=== PATIENT | female | born 1970 | race African-American/Black ===

== ENCOUNTER 2023-08-24 20:12 | Emergency (ER) | payer OTHER ==
[~2023-08-24] VITALS: Ht 162.6 cm; Wt 118.2 kg
[2023-08-24 20:40] VITALS: BP 145/100; PULSE 96; RESP 18; O2SAT 98
[2023-08-24 22:07] LABS: COVID19 ANTIGEN SOFIA FIA NEGATIVE (NEGATIVE); Rapid Influenza A Negative (Negative); Rapid Influenza B Negative (Negative)
[2023-08-24] MEDS ORDERED: AMOX875T4 PO (23:52)
[2023-08-24] MEDS ORDERED: PRED20TA2 PO (23:52)
[2023-08-24] MEDS ORDERED: ACET500T58 PO (23:52)
[2023-08-24] MEDS ORDERED: ZOFR4T PO (23:55)
[2023-08-24] MEDS: ONDANSETRON ODT 4 MG TAB PO ONE (23:57)
[2023-08-24] MEDS: methylPREDNISolone SOD SUCC 125 MG/2 ML VL IM ONE (23:58)
[2023-08-24] MEDS: cefTRIAXone SOD 1,000 MG VL IM ONE (23:59)
== END 2023-08-25 00:12 | disposition home or self-care (01) ==
LOC: ER 20:12
DX: J06.9 Acute upper respiratory infection, unspecified (principal); Z20.822 Contact with and (suspected) exposure to COVID-19
CPT/HCPCS: 36415; 87426; 87804; 96372; 99284; J0696; J2930; Q0162

== ENCOUNTER 2024-04-23 21:32 | Emergency (ER) | payer OTHER ==
[~2024-04-23] VITALS: Ht 165.1 cm; Wt 100.0 kg
[~2024-04-23 21:32] MED LIST: ACET500T58 PO; AMOX875T4 PO; PRED20TA2 PO; ZOFR4T PO
[2024-04-23 21:57] VITALS: PULSE 116; RESP 18; O2SAT 93
[2024-04-23 22:31] LABS: Basophils # (auto) 0 10 ^3/uL (0-0.2); Eosinophils # (auto) 0.1 10 ^3/uL (0-0.8); Eosinophils % (auto) 0.9 % (0.0-7.0); Hemoglobin 15.7 g/dL (12.2-16.2)
[2024-04-23 22:32] LABS: Basophils % (auto) 0.5 % (0.0-2.0); Hematocrit 48.1 % (36.0-46.0); Lymphocytes # (auto) 0.6 10 ^3/uL (0.4-5.4); Lymphocytes % (auto) 6.1 % (10.0-50.0); Mean Corpuscular Hemoglobin 24.7 pg (28.0-32.0); Mean Corpuscular Hgb Conc. 32.8 g/dL (32.0-36.0); Mean Corpuscular Volume 75.4 fL (80.0-100.0); Monocytes # (auto) 0.3 10 ^3/uL (0-1.3); Monocytes % (auto) 2.8 % (0.0-12.0); Neutrophils # (auto) 8.1 10 ^3/uL (1.6-8.6); Neutrophils % (auto) 89.7 % (37.0-80.0); Nucleated Red Blood Cells % 0.1 %; Platelet Count (auto) 263 10^3/uL (140-450); Red Blood Cells 6.38 10^6/uL (4.0-5.20); Red Cell Distribution Width 16.8 % (11.8-14.3); White Blood Cell 9.1 10^3/uL (4.4-10.8)
[2024-04-23] MEDS: ACETAMINOPHEN IV 1000 MG/100ML (10MG/ML) IV STA (22:33)
[2024-04-23] MEDS: SODIUM CHLORIDE 0.9% 1,000 ML IV ONE (22:33)
[2024-04-23] MEDS: METOCLOPRAMIDE HCL 5MG/ml INJ 2ml VIAL IV ONE (22:33)
[2024-04-23 23:00] LABS: Anion Gap 11 (5-15); Calcium 9.4 mg/dL (8.7-10.4); Carbon Dioxide 21 mmol/L (20-31); Chloride 108 mmol/L (98-107); Sodium 140 mmol/L (136-145)
[2024-04-23 23:06] LABS: BUN/Creatinine Ratio 11.8 (10.0-20.0); Blood Urea Nitrogen 9 mg/dL (9-23); Glucose 112 mg/dL (74-106)
[2024-04-23] MEDS: MAGNESIUM SULFATE 1GM/100ML 100 ML IV SCH (23:47)
[2024-04-24] MEDS: DexAMETHasone SOD PHOS 10MG/1ML VIAL INJ IV ONE (01:07)
[2024-04-24] MEDS: KETOROLAC TROMETH 30 MG/ML 1ML VIAL IV ONE (01:08)
[2024-04-24] MEDS: SODIUM CHLORIDE 0.9% 1,000 ML IV ONE (01:59)
[2024-04-24 02:00] VITALS: BP 145/86; PULSE 83; RESP 14; TEMP 98.9; O2SAT 96
== END 2024-04-24 03:04 | disposition home or self-care (01) ==
LOC: ER 21:32 → EDBD 21:32 → ER 04-24 02:55
DX: G43.909 Migraine, unspecified, not intractable, without status migrainosus (principal); I10 Essential (primary) hypertension; E11.9 Type 2 diabetes mellitus without complications; E78.5 Hyperlipidemia, unspecified; J45.909 Unspecified asthma, uncomplicated; E66.9 Obesity, unspecified; Z88.2 Allergy status to sulfonamides; Z88.8 Allergy status to other drugs, medicaments and biological substances; Z79.899 Other long term (current) drug therapy
CPT/HCPCS: 36415; 80048; 84484; 85025; 93005; 96361; 96365; 96366; 96375; 99285; J1100; J1885; J2765; J3475; J7030; J0131